=== PATIENT | female | born 1975 | race Caucasian/White ===

== ENCOUNTER 2017-01-27 01:49 | Outpatient (CLI) | payer OTHER | END 2017-01-27 01:50 | disposition home or self-care (01) | LOC: BICULT 01:49 | PROVIDERS: ATTEND Physician Assistant | DX: E01.0 Iodine-deficiency related diffuse (endemic) goiter (principal) | CPT/HCPCS: 76536 ==

== ENCOUNTER 2017-05-30 18:55 | Inpatient (IN) | payer SELFPAY ==
[2017-05-30] MEDS ORDERED: Morphine 4 MG/ML VIAL ONE (20:10)
[2017-05-30] MEDS ORDERED: Acetaminophen 325 MG TAB PO PRN (21:57)
[2017-05-30] MEDS ORDERED: Milk Of Magnesia 30 ML UDCUP PO PRN (21:57)
[2017-05-30] MEDS ORDERED: Ondansetron HCl/PF 4 MG/2 ML Vial IVP PRN ×2 (21:57→23:10)
[2017-05-30] MEDS ORDERED: Lorazepam 2 MG/ML VIAL SLOW IVP PRN (21:58)
[2017-05-30] MEDS ORDERED: Ondansetron ODT 4 MG TAB SL PRN (23:10)
[2017-05-30] MEDS ORDERED: Morphine 4 MG/ML VIAL SLOW IVP PRN (23:11)
[2017-05-30 23:15] VITALS: BMI 20.9
--- NOTE | 2017-05-31 00:12 | HP ---
PRIMARY CARE PHYSICIAN: None. PRESENTING COMPLAINT: Lower back pain. HISTORY OF PRESENT ILLNESS: Ms. Annemarie Avendano is a 42-year-old female with a past medical history of epilepsy, depression and anxiety, who presented to the emergency room from an outside ER with complaints of lower back pain, started about 4 days ago. She describes it as an intermittent, sharp, lower back pain, radiating down both legs and associated with numbness, tingling and weakness of her legs. She states it is worse on the left than the right. She has not had any previous episodes. There is no history of trauma. She denies fever or chills. She was seen at [facility] where she had an abdomen/pelvis CT done. This revealed minimal degenerative changes in the lower thoracic spine, but no evidence of fracture or subluxation involving the lumbar spine. She was then sent to [facility] for an MRI to rule out a spinal cord impingement. PAST MEDICAL HISTORY: As stated as above. PAST SURGICAL HISTORY: None. FAMILY HISTORY: Reviewed and noncontributory. SOCIAL HISTORY: Drinks alcohol on occasion, but denies smoking cigarettes or use of illicit drugs. ALLERGIES: None. HOME MEDICATIONS: None. REVIEW OF SYSTEMS: 12-point review of systems negative except as stated in the HPI. PHYSICAL EXAMINATION: VITAL SIGNS: Blood pressure 127/90, pulse rate 78, respiratory rate 18, oxygen saturation 100 % on room air, temperature 98 degree Fahrenheit. GENERAL: Not in acute distress. She states her pain has resolved following IV morphine. HEENT: Normocephalic, atraumatic. Not pale, anicteric. Moist oral mucosa. PERRLA. EOMI. NEUROLOGIC: Alert and oriented to time, place and person. Positive for paraspinal tenderness in the lumbar region. Reflexes increased in the patella. Sensation normal. RESPIRATORY: Vesicular breath sounds bilaterally. No wheezes or rales. CARDIOVASCULAR: S1, S2 only. Regular rate and rhythm. No murmurs, rubs or gallops. SKIN: Warm, dry, well-perfused. No rashes or lesions. PSYCHIATRIC: Anxious. MUSCULOSKELETAL: No edema. Moves all extremities. Examination limited due to the patient's discomfort and anxiety, not fully cooperating with exam. LABORATORY DATA: CBC with slight leukocytosis of 12.1. Serum chemistry with mild hypokalemia of 3.2. CT Abdomen/Pelvis: See HPI. ASSESSMENT AND PLAN: 1. Acute Lower back pain with paresthesia b/l lower extremities: Concern for neurologic etiology, especially with the description of the pain and increased reflexes on examination. MRI was ordered in the emergency room, but the patient was unable to tolerate the exam. She was given 4 mg of morphine sulfate to alleviate the pain, so she can get the MRI, but was anxious and unable to get MRI done. She was not given Ativan or any sedatives, but decision was then made by ER physician is to admit her to the hospital to obtain Anesthesia consult for possible conscious sedation for MRI. Since the fuel cell battery technician had left for the night, I plan to admit her to the hospital on observation and give her 2 mg of lorazepam before attempting MRI in the morning. If this is unsuccessful, then Anesthesia can be consulted for conscious sedation. In the meantime, we will ensure adequate pain control. 2. History of depression and anxiety. The patient reports a history of depression, but has not taken medications for a few months. She also reports getting anxious and panic attacks. We will place her on IV lorazepam p.r.n. for anxiety. CODE STATUS: FULL CODE. MTDD
[2017-05-31 04:55] LABS: #Eosinphils 0.1 thou/uL (0.0-0.7); #Lymphocytes 2.5 thou/uL (1.20-3.40); #Neutrophils 5.4 thou/uL (1.40-6.50); %Basophils 0.5 % (0.0-1.0); %Eosinophils 1.3 % (0.0-10.0); %Lymphocytes 27.4 % (21.0-51.0); %Monocytes 11.2 % (0.0-10.0); %Neutrophils 59.7 % (42.0-75.0); Hemoglobin 11.9 g/dL (12.0-16.0); Mean Corpuscular Volume 97.2 fl (81.0-99.0); Mean Platelet Volume 7.3 fL (7.4-10.4); Platelet Count 281 thou/uL (130-400); RBC Distribution Width 11.4 % (11.5-14.5); White Blood Cell (WBC) Count 9.1 thou/uL (4.8-10.8)
[2017-05-31 05:06] LABS: Anion Gap 11 mmol/L (10-20); BUN (Urea Nitrogen) 10 mg/dL (7.0-18.7); Calc. Creatinine Clearance 86 mL/min (70-130); Calcium 9.1 mg/dL (7.8-10.44); Carbon Dioxide 25 mmol/L (22-29); Chloride 105 mmol/L (98-107); Estimated GFR-MDRD Greater than 90; Glucose 111 mg/dL (70-105); Potassium 4.3 mmol/L (3.5-5.1); Sodium 137 mmol/L (136-145)
[2017-05-31] MEDS: Famotidine 20 MG TAB PO SCH ×2 (08:46→20:35)
[2017-05-31] MEDS: HYDROcodone/Acetaminophen 5/325 mg Tablet PO PRN ×2 (08:46→18:25)
[2017-05-31] MEDS: Docusate 100 MG CAP PO SCH ×2 (08:47→20:35)
--- NOTE | 2017-05-31 12:26 | PDOC.PN ---
- Subjective Encounter Start Date: 05/31/17 Encounter Start Time: 11:20 -: old records requested/rev Pt seen and examined, chart reviewe din its entirety, this ismy first visit with this patient. Admitted last night for acut eonchornic lumbar back pain with bilateral LE radiculopathy, no bowel or bladder control issues, but pain too much to tolerate ambulating. labs ok. Placed in observation - stat MRI L spine ordered by ER, but accidentally dated for this evening instead of last evening. I reordered. Pain about the same. no N/v, no CP or sOb, no D/C. family at bedside. 10 point ROs performed and neg for all systems except as per HPI - Objective MAR Reviewed: Yes Vital Signs & Weight: Vital Signs (12 hours) Temp Pulse Resp BP Pulse Ox 05/31/17 11:57 97.9 F 68 16 130/85 100 05/31/17 08:00 98.3 F 59 L 14 99 05/31/17 07:51 98.3 F 59 L 14 119/79 99 05/31/17 05:00 98.0 F 60 16 147/88 H 98 Weight Weight 114 lb 11.2 oz I&O: 05/30/17 05/31/17 06/01/17 06:59 06:59 06:59 Intake Total 400 0.5 Balance 400 0.5 Result Diagrams: 05/31/17 04:07 05/31/17 04:07 Radiology Reviewed by me: Yes EKG Reviewed by me: Yes Phys Exam - Physical Examination Constitutional: NAD HEENT: PERRLA, moist MMs, sclera anicteric, oral pharynx no lesions Neck: no nodes, no JVD, supple, full ROM Respiratory: no wheezing, no rales, no rhonchi, clear to auscultation bilateral Cardiovascular: RRR, no significant murmur, no rub Gastrointestinal: soft, non-tender, no distention, positive bowel sounds Musculoskeletal: no edema, pulses present numbness to BLe, 3-5 strength, limited by pain. Lymphatic: no nodes Psychiatric: normal affect, A&O x 3 Skin: no rash, normal turgor, cap refill <2 seconds Dx/Plan (1) Acute lumbar radiculopathy Code(s): M54.16 - RADICULOPATHY, LUMBAR REGION Status: Acute Comment: State MRI, follow up on results (2) Seizure disorder Code(s): G40.909 - EPILEPSY, UNSP, NOT INTRACTABLE, WITHOUT STATUS EPILEPTICUS Status: Chronic (3) Anxiety Code(s): F41.9 - ANXIETY DISORDER, UNSPECIFIED Status: Chronic (4) Depression Code(s): F32.9 - MAJOR DEPRESSIVE DISORDER, SINGLE EPISODE, UNSPECIFIED Status : Chronic Qualifiers: Depression Type: major depressive disorder Major depression episode severity: unspecified - Plan cont current plan of care, plan discussed w/ family, PT/OT * . continue home meds, follow up MRI - of abnormal, will ask neurosurgery to evaluate.
--- NOTE | 2017-05-31 15:43 | MRI ---
MRI LUMBAR SPINE WITH AND WITHOUT CONTRAST: DATE: 05/31/17 HISTORY: 42-year-old female with lumbar radiculopathy: Severe low back pain that radiates to bilateral lower extremities COMPARISON: None. TECHNIQUE: Multiple sequences obtained in axial and sagittal planes, pre and post IV injection of gadolinium-bas ed contrast agent: 12 mL MultiHance. This was originally ordered as a noncontrast MRI, but then an extradural mass was found in the upper sacral spinal canal, and was converted to a MRI with and without contrast. Furthermore, multiple neyda tional sequences of the pelvic cavity were performed to evaluate the right intrapelvic mass. FINDINGS: There are five lumbar-type vertebrae. Vertebral body heights are maintained. Alignment is normal. All levels from T12-L1 through L4-5 are essentially normal, with normal disc spaces, no high grade centr al stenosis, no high grade neural foraminal stenosis, and no nerve root impingement. Conus medullaris terminates at L1-2. Cauda equina is arranged in a symmetrical, normal distribution throughout the th ecal sac. At L5-S1, there is mild disc space narrowing, but no disc desiccation. At that level, there is a mild disc bulge, plus a central midline small disc herniation. Attached to the inferior edge of this cent ral small disc herniation, there is a mass in the anterior epidural space of the S1 level, measuring approximately 16 x 9 x 20 mm, with hypointense T1 WI signal similar to that of disc, and intermediate signal intensity on T2 WI, slightly more hyperintense than that of parent disc. There is a thin circ umferential rim of enhancement around the mass representing granulation tissue, which extends superio rly to the L4-5 level and inferiorly down to the mid sacral level. This mass occupies the upper 75% t he craniocaudal length of the S1 spinal canal level, and represents an inferiorly migrated, moderate ly large extruded disc fragment. It is still attached to its parent disc, and is therefore not quite sequestered. It displaces the bilateral S1 nerve roots laterally, and severely narrows the upper sacr al thecal sac, additionally compressing the more distal sacral nerve roots. There is no abnormal bone marrow enhancement or bone marrow signal abnormality. In the right far posterior aspect of the pelvic cavity, there is an approximately 4.5 x 4.5 x 3 cm th in-walled cyst, with thin rim enhancement, but no central enhancing solid components. It is surrounde d by a tiny amount of free fluid. It was demonstrated and described on the CT of 05/30/17. IMPRESSION: 1. In the S1 anterior sacral epidural space, there is a moderately large, inferiorly migrated, extru ded disc fragment, which impinges on multiple bilateral sacral nerve roots. 2. The rest of the lumbar spine superior to L5 is normal. 3. Moderately large cyst in the far posterior right pelvic cavity. ERICH Robertson POS: [facility]
[2017-06-01 04:49] LABS: #Eosinphils 0.2 thou/uL (0.0-0.7); #Lymphocytes 2.6 thou/uL (1.20-3.40); #Monocytes 0.8 thou/uL (0.11-0.59); #Neutrophils 4.1 thou/uL (1.40-6.50); %Basophils 0.5 % (0.0-1.0); %Eosinophils 2.2 % (0.0-10.0); %Lymphocytes 33.7 % (21.0-51.0); %Monocytes 10.3 % (0.0-10.0); %Neutrophils 53.3 % (42.0-75.0); Hemoglobin 12.1 g/dL (12.0-16.0); Mean Corpuscular HGB CONC 32.8 g/dL (32.0-36.0); Mean Corpuscular Hemoglobin 32.3 pg (27.0-31.0); Mean Corpuscular Volume 98.4 fl (81.0-99.0); Mean Platelet Volume 7.1 fL (7.4-10.4); Platelet Count 272 thou/uL (130-400); RBC Distribution Width 11.3 % (11.5-14.5); Red Blood Cell (RBC) Count 3.76 mill/uL (4.20-5.40); White Blood Cell (WBC) Count 7.7 thou/uL (4.8-10.8)
[2017-06-01 05:02] LABS: Anion Gap 8 mmol/L (10-20); BUN (Urea Nitrogen) 11 mg/dL (7.0-18.7); Calc. Creatinine Clearance 75 mL/min (70-130); Calcium 9.2 mg/dL (7.8-10.44); Carbon Dioxide 28 mmol/L (22-29); Chloride 104 mmol/L (98-107); Estimated GFR-MDRD 78; Glucose 102 mg/dL (70-105); Potassium 4.2 mmol/L (3.5-5.1); Sodium 136 mmol/L (136-145)
--- NOTE | 2017-06-01 08:28 | CON ---
DATE OF CONSULTATION: 06/01/2017 HISTORY OF PRESENT ILLNESS: Ms. Avendano is a very pleasant 42-year-old woman who around 4 days ago star ayden developing back pain that progressively worsened over the course of the next 72 hours including t he bilateral S1 radiculopathies all the way into the feet. She also had notable numbness over the sa me distribution and likely most concerning of all was this inability or sensation that she was not co mpletely voiding. For this purpose she went to the [facility] for [facility] where they evaluated her. I actually spoke with the ER physician at that location who stated th at she had a postvoid residual volume of 150 mL so her suspicions were correct and she was retaining urine. I asked that she be transferred for the purpose of obtaining a lumbar MRI which was done. Gudelia mayes was ultimately admitted to the Hospital Service. MRI was performed which revealed a significant ce ntral concentric disk herniation with inferior migration at L5-S1, impacting the S1 and S2 nerve root s. This is more than likely the definitive source of all of her symptoms as we discussed at bedside, she states that she feels giveaway weakness in the left lower extremity which is also where she feel s the majority of her pain, her right lower extremity. She is lying in the bed for yesterday she sta rted to improve slightly, but still has pain. She has numbness in her bilateral feet, particularly i n the soles of her feet and again corroborates the fact that she continues to feel like she is incomp letely voiding. She denies saddle anesthesia. Denies any bowel incontinence and still knows when gudelia mayes had the urge to urinate. On examination, she has significant pain limiting weakness, particularly in the left lower extremity. I would grade her strength at about 4-5, however, again very limited on examination, given the acute pain spikes any time she moves either of her lower extremities. She r equests that she be able to walk; however, I feel like this maneuver would definitively be intolerabl e based on the amount of pain that she is in just from minor movements at bedside. Reflexes are norm al at the patella. Sensory disturbance is posterior in the calves and soles of her feet. She has a paraesthesia to the lateral left hip that is not present on the right. Straight leg raise is adamant ly positive on the left lower extremity and then to a lesser extent, but still positive on the right lower extremity. I had a discussion with her regarding nonoperative versus operative management and feel that since she does have some bladder dysfunction that is new in concordance with her back pain that I would likely side on a surgical route, but would need to discuss with Dr. Zamora and we will pl an for more discussion later this morning. I will go ahead and initiate n.p.o. diet in the instance that we do proceed with surgery today. As stated I have the discussion regarding planning if we do not decide to do so, will return her back to her regular dietary needs. Thank you for the consultation.
[2017-06-01] MEDS: Docusate 100 MG CAP PO SCH ×2 (10:06→20:30)
[2017-06-01] MEDS: Famotidine 20 MG TAB PO SCH ×2 (10:06→20:30)
--- NOTE | 2017-06-01 12:16 | PDOC.PN ---
- Subjective Encounter Start Date: 06/01/17 Encounter Start Time: 10:15 Pt seen and examined. Up brushing teeth, pain ful to walk. Case discussed nu Rubio PA-C with Dr Sera jhaveri neurosurgey, agreeeable to surgicla intervention if pt agrees. Pt took hibiclens shower, agreeable to surgery, NPO in anticipation of surgery this afternoon 10 point ROS performed and neg for all systems except as per HPI - Objective MAR Reviewed: Yes Vital Signs & Weight: Vital Signs (12 hours) Temp Pulse Resp BP Pulse Ox 06/01/17 08:00 97.6 F 61 16 99 06/01/17 04:00 97.6 F 61 16 104/75 98 Weight Admit Weight 114 lb 11.2 oz Weight 114 lb 11.2 oz I&O: 05/31/17 06/01/17 06/02/17 06:59 06:59 06:59 Intake Total 400 240.5 Balance 400 240.5 Result Diagrams: 06/01/17 03:57 06/01/17 03:57 Radiology Reviewed by me: Yes EKG Reviewed by me: Yes Phys Exam - Physical Examination Constitutional: NAD HEENT: PERRLA, moist MMs, sclera anicteric, oral pharynx no lesions Neck: no nodes, no JVD, supple, full ROM Respiratory: no wheezing, no rales, no rhonchi, clear to auscultation bilateral Cardiovascular: RRR, no significant murmur, no rub Gastrointestinal: soft, non-tender, no distention, positive bowel sounds Musculoskeletal: no edema, pulses present weskness and numbness to BLE, motion limited by pain Lymphatic: no nodes Psychiatric: normal affect, A&O x 3 Skin: no rash, normal turgor, cap refill <2 seconds Dx/Plan (1) Acute lumbar radiculopathy Code(s): M54.16 - RADICULOPATHY, LUMBAR REGION Status: Acute Comment: Stat MRI with disk migration casuing nerve impingement. to OR this afternoon for extraction (2) Seizure disorder Code(s): G40.909 - EPILEPSY, UNSP, NOT INTRACTABLE, WITHOUT STATUS EPILEPTICUS Status: Chronic (3) Anxiety Code(s): F41.9 - ANXIETY DISORDER, UNSPECIFIED Status: Chronic (4) Depression Code(s): F32.9 - MAJOR DEPRESSIVE DISORDER, SINGLE EPISODE, UNSPECIFIED Status : Chronic Qualifiers: Depression Type: major depressive disorder Major depression episode severity: unspecified - Plan cont current plan of care, PT/OT, out of bed/ambulate * .
[2017-06-01] MEDS ORDERED: Thrombin 5000 UNITS/5 ML VIAL ONE (12:35)
[2017-06-01] MEDS ORDERED: Bupivacaine HCl 0.5%/Epinephrine 1:200,000/PF 30 ml Vial ONE (12:35)
[2017-06-01] MEDS ORDERED: diphenhydrAMINE 50 MG/ML VIAL ONE (13:19)
[2017-06-01] MEDS ORDERED: ePHEDrine/0.9% NaCl/PF SYRINGE 50 mg/10 ml ONE (13:19)
[2017-06-01] MEDS ORDERED: Ketorolac Tromethamine 30 MG/ML VIAL ONE (13:19)
[2017-06-01] MEDS ORDERED: Dexamethasone 20 MG/5 ML VIAL ONE (13:19)
[2017-06-01] MEDS ORDERED: PROPOFOL 200 MG/20 ML VIAL ONE (13:19)
[2017-06-01] MEDS ORDERED: Lidocaine 1% PF 5 ML VIAL ONE (13:19)
[2017-06-01] MEDS ORDERED: PHENYLEPHRINE-NS 100 MCG/ML 10 ML SYRINGE ONE (13:19)
[2017-06-01] MEDS ORDERED: Glycopyrrolate 0.2 MG/ML 5 ML SYRINGE ONE (13:19)
[2017-06-01] MEDS ORDERED: Fentanyl 100 MCG/2 ML VIAL ONE (13:42)
[2017-06-01] MEDS ORDERED: Midazolam HCl 2 mg/2 ml Vial ONE ×2 (13:48→13:50)
--- NOTE | 2017-06-01 14:07 | PRG ---
DATE OF SERVICE: 06/01/2017 SUBJECTIVE: Ms. Avendano was admitted 2 days ago with severe low back and lower extremity discomfort. S he has been contending with this now for several days. She reached the point where pain was so signi ficant, she was unable to weightbear and walk and prompted a visit to the ER. She has had an MRI sca n performed in the lumbar spine since that time which revealed the presence of an L5 disk herniation with inferior migration impinging upon the S1 potentially components of the S2 nerve roots. She has numbness in her lower extremities in addition to pain. She does not have any weakness when strength testing at bedside while supine. We discussed with her the treatment options including risks, benefits, and alternatives to an L5 disk ectomy. She would like to go ahead and move forward with surgery. I answered all of her questions a s well as the questions of her mother. They were informed and provided consent for the procedure.
[2017-06-01] MEDS ORDERED: Meperidine HCl/PF 25 MG/ML VIAL ONE (15:56)
[2017-06-01] MEDS ORDERED: Meperidine HCl/PF 25 MG/ML VIAL SLOW IVP PRN (15:57)
[2017-06-01] MEDS ORDERED: Ondansetron HCl/PF 4 MG/2 ML Vial IVP PRN (15:57)
[2017-06-01] MEDS ORDERED: Promethazine HCl 25 MG/ML VIAL IM PRN (15:57)
[2017-06-01] MEDS ORDERED: Promethazine HCl 25 MG/ML VIAL SLOW IVP PRN (15:57)
[2017-06-01] MEDS ORDERED: Mag-Al 1200 mg/1200 mg/30 ML UDCUP PO PRN (16:37)
[2017-06-01] MEDS ORDERED: Acetaminophen 325 MG TAB PO PRN (16:37)
[2017-06-01] MEDS ORDERED: Bisacodyl 10 MG SUPP PR PRN (16:37)
[2017-06-01] MEDS ORDERED: Morphine 4 MG/ML Carpuject SLOW IVP PRN (16:37)
[2017-06-01] MEDS ORDERED: diphenhydrAMINE 50 MG/ML VIAL IVP PRN (16:37)
[2017-06-01] MEDS ORDERED: Acetaminophen/Codeine 30-300mg Tablet PO PRN (16:37)
[2017-06-01] MEDS ORDERED: Acetaminophen 650 MG Suppository PR PRN (16:37)
[2017-06-01] MEDS ORDERED: diphenhydrAMINE 25 MG CAP PO PRN (16:37)
[2017-06-01] MEDS ORDERED: Ondansetron HCl/PF 4 MG/2 ML Vial SLOW IVP PRN (16:39)
[2017-06-01] MEDS ORDERED: Morphine 4 MG/ML VIAL SLOW IVP PRN ×2 (16:45)
[2017-06-01] MEDS: Sodium Chloride 0.9% 1,000 ML IV SCH (17:03)
--- NOTE | 2017-06-01 18:37 | OP ---
DATE OF PROCEDURE: 06/01/2017 SURGEON: Francisco Zamora M.D. SEAT MENDER: Miguel Rubio PA-C. INDICATION: Pain. DIAGNOSIS: Lumbar radiculopathy. PROCEDURE: L5 laminectomy, L5 discectomy. ANESTHESIA: General. TECHNIQUE: The patient was brought into the operating room and placed under general anesthesia. She was flipped from a supine or prone position on the operating room table. A linear incision was plan michelle over the L5-S1 segment. After prepping and draping and after an appropriate operative pause, the incision was created. The soft tissues were swept away from midline. An Adson rongeur as well as 2 , 3 and 4 mm Kerrisons were used to remove the inferior lamina of L5 and superior aspect of S1. The descending S1 nerve roots were identified, mobilized medially. Large extruded disk material that had migrated inferiorly was identified and carefully removed until the central canal and lateral recesse s including the descending S1 nerve roots were decompressed. The wound was irrigated. Hemostasis wa s maintained throughout. The wound was then closed in anatomic layers and a pressure dressing was ap plied. There were no known procedural complications.
[2017-06-01] MEDS: CEFAZOLIN 1 GM, Syringe 2.5 ML in Sterile Water 7.5 ML SLOW IVP SCH (22:18)
[2017-06-02 05:14] LABS: #Lymphocytes 1.3 thou/uL (1.20-3.40); #Monocytes 0.9 thou/uL (0.11-0.59); #Neutrophils 10.7 thou/uL (1.40-6.50); %Basophils 0.2 % (0.0-1.0); %Eosinophils 0.1 % (0.0-10.0); %Lymphocytes 9.9 % (21.0-51.0); %Monocytes 6.8 % (0.0-10.0); %Neutrophils 83.1 % (42.0-75.0); Hemoglobin 10.9 g/dL (12.0-16.0); Mean Corpuscular HGB CONC 33.4 g/dL (32.0-36.0); Mean Corpuscular Hemoglobin 32.7 pg (27.0-31.0); Mean Corpuscular Volume 97.9 fl (81.0-99.0); Mean Platelet Volume 7.3 fL (7.4-10.4); Platelet Count 280 thou/uL (130-400); RBC Distribution Width 11.2 % (11.5-14.5); Red Blood Cell (RBC) Count 3.33 mill/uL (4.20-5.40); White Blood Cell (WBC) Count 12.9 thou/uL (4.8-10.8)
[2017-06-02] MEDS: CEFAZOLIN 1 GM, Syringe 2.5 ML in Sterile Water 7.5 ML SLOW IVP SCH (05:26)
[2017-06-02] MEDS: Sodium Chloride 0.9% 1,000 ML IV SCH ×2 (05:26→20:32)
[2017-06-02 05:35] LABS: Anion Gap 7 mmol/L (10-20); BUN (Urea Nitrogen) 10 mg/dL (7.0-18.7); Calc. Creatinine Clearance 91 mL/min (70-130); Calcium 8.7 mg/dL (7.8-10.44); Carbon Dioxide 25 mmol/L (22-29); Chloride 107 mmol/L (98-107); Estimated GFR-MDRD Greater than 90; Glucose 105 mg/dL (70-105); Potassium 4.1 mmol/L (3.5-5.1); Sodium 135 mmol/L (136-145)
[2017-06-02] MEDS: Cyclobenzaprine 10 MG TAB PO PRN (07:50)
[2017-06-02] MEDS: Acetaminophen/Codeine 30-300mg Tablet PO PRN ×2 (07:51→18:13)
[2017-06-02] MEDS: Famotidine 20 MG TAB PO SCH ×2 (07:55→20:34)
[2017-06-02] MEDS: Docusate 100 MG CAP PO SCH ×2 (07:55→20:34)
[2017-06-02] MEDS ORDERED: Dexamethasone 4 mg/ml Vial SLOW IVP SCH (10:30)
--- NOTE | 2017-06-02 10:50 | PRG ---
DATE OF SERVICE: 06/02/2017 Ms. Avendano is 1 day status post L5 diskectomy for a large inferiorly extruded L5 disk. Surgery was une ventful. She has had her uneventful course since surgery. I did visit with her today and she is mob ilizing in the halls with the aid of physical therapy and she reports the anticipated post-surgical a ches and pains. She is where I would expect her to be from a neurosurgical perspective. We will arr nicolas outpatient follow up in 2 weeks. Please call if there are questions.
[2017-06-02] MEDS ORDERED: Dexamethasone 6 MG, Admixture Fee 1 EACH in Sodium Chloride 0.9% 50 ML IVPB ONE (12:00)
--- NOTE | 2017-06-02 16:41 | DIS ---
DATE OF ADMISSION: 05/30/2017 DATE OF DISCHARGE: 06/02/2017 DISCHARGE DIAGNOSES: 1. Sacral nerve impingement secondary to extruded lumbar disk fragment. 2. Intractable pain. 3. Bilateral lower extremity numbness, tingling, and weakness. 4. Seizure disorder. 5. Depression. 6. Anxiety. CONSULTATIONS: Neurosurgery, Dr. Rehan Rubio and Dr. Francisco Zamora on 06/01/2017. PROCEDURES: On 06/01/[address] Francisco Zamora, the patient underwent L5 micro laminectomy and L5 disk ectomy of extruded fragment. HISTORY AND PHYSICAL: Ms. Avendano is a 42-year-old female with history of seizures, anxiety, and depres gus who presented to the emergency department for lower back pain and bilateral extremity weakness a nd numbness. She initially presented to an outside ER with complaints about 4 days prior to admissio n, intermittent, sharp and radicular in nature, worse on the left than the right and not having befor e. She was seen and evaluated at [facility] with abdomen and pelvis CT done that showed minimal DJD in the lower thoracic spine. She was subsequently transferred here for further workup and evaluatio n. Here, the patient was attempted to get an MRI, but she was unable to lay flat. She was given some mo rphine to alleviate, but due to anxiety, was unable to get the MRI done. We subsequently called for admit. HOSPITAL COURSE: The patient was seen and examined by Dr. Lopez, was initially placed in observat ion and a stat MRI was ordered but unfortunately was ordered for the evening of 05/31. I took the case over that morning, the patient's pain was uncontrolled. She was given some IV medica tions for anxiety and for pain and ultimately was able to have her MRI spine, time retained for 11:00 a.m. MRI on 05/31/2017 revealed a disk fragment that had travelled inferiorly and was impinging the sacral nerves in the caudal equina. At that time, Neurosurgery was consulted who agreed that she would bianka efit from decompression. She was seen initially by Neurosurgery on the morning of 06/01, she was kept n.p.o. and taken to the operating room on 06/01 in the afternoon, and underwent L5 laminectomy and diskectomy. Today, she was able to get up and walk around with some expected postop pain, but otherwise stable fo r discharge with outpatient followup. PHYSICAL EXAMINATION: The patient was seen and examined on the day of discharge. Discharge plan an d disposition was discussed with the patient face to face at the bedside. DISCHARGE MEDICATIONS: 1. Tylenol #4 one to two p.o. q.4-6 hours p.r.n. pain, prescription for 90 tablets with no refills p rovided by Dr. Zamora. 2. Flexeril 10 mg p.o. q.8 hours p.r.n. muscle spasm, prescription for 60 tablets with 1 refill prov [address] Zamora. FOLLOWUP APPOINTMENTS: 1. Primary care physician within a week. 2. Dr. Zamora with Neurosurgery in 2 weeks. DISCHARGE CONDITION: Stable. DISPOSITION: Being discharged home via private vehicle. DISCHARGE ACTIVITY: Per neurologic limits. DISCHARGE DIET: Unrestricted.
[2017-06-02] MEDS ORDERED: Bisacodyl 10 MG SUPP PR SCH (20:15)
[2017-06-02] MEDS ORDERED: Senokot 8.6 MG TAB PO SCH (20:15)
--- NOTE | 2017-06-02 22:43 | RAD ---
FRONTAL VIEW ABDOMEN: 06/02/17 INDICATION: Abdominal pain. FINDINGS: Upper abdomen is excluded. There is moderate retained fecal material in the colon. Bowel gas pattern is nonspecific. Evaluate for free air is limited by exclusion of the upper abdomen as well as supine positioning. IMPRESSION: Moderate retained fecal material of the colon. POS: [facility]
[2017-06-03] MEDS: HYDROcodone/Acetaminophen 5/325 mg Tablet PO PRN (03:13)
[2017-06-03 06:43] VITALS: TEMP 98
[2017-06-03] MEDS: Sodium Chloride 0.9% 1,000 ML IV SCH (08:09)
[2017-06-03 08:19] VITALS: BP 146/91
[2017-06-03] MEDS: Docusate 100 MG CAP PO SCH (08:28)
[2017-06-03] MEDS: Famotidine 20 MG TAB PO SCH (08:28)
[2017-06-03] MEDS: Cyclobenzaprine 10 MG TAB PO PRN (08:32)
[2017-06-03] MEDS: Acetaminophen/Codeine 30-300mg Tablet PO PRN (08:32)
[2017-06-03] MEDS ORDERED: Cyclobenzaprine 10 MG TAB PO PRN (09:38)
[2017-06-03] MEDS ORDERED: Polyethylene Glycol 3350 17 GM Packet PO SCH (09:45)
--- NOTE | 2017-06-04 07:04 | EKG ---
Test Reason : Blood Pressure : / mmHG Vent. Rate : 059 BPM Atrial Rate : 059 BPM P-R Int : 112 ms QRS Dur : 084 ms QT Int : 410 ms P-R-T Axes : 038 051 094 degrees QTc Int : 405 ms Sinus bradycardia Nonspecific T wave abnormality Abnormal ECG Confirmed by ENRIQUE MENDOZA ([id number]) on 06/04/2017 7:04:00 AM Referred By: OLEGARIO Confirmed By:ENRIQUE MENDOZA
--- NOTE | 2017-06-07 10:03 | ADD-DIS ---
ADDENDUM For full discharge summary, please see dictation from 06/02/2017, the patient was discharged home, mauri bernard, while waiting for her ride did show up between 9:00 a.m. and 9:00 p.m., the patient developed some left adnexal pain. She was found to have some ovarian cysts on initial imaging and she is curre ntly at day 10 of her menstrual cycle since the beginning of her last menses. She also has been havi ng some constipation and had not having good bowel movement, so she was started on MiraLax and her di scharge was canceled. Overnight, she did well, she had multiple bowel movements and on my evaluation in next morning, she w as baseline walking 250 feet. I have ordered a walker for her to have her stability. I discussed wi th her adnexal pain, likely her ovarian cyst and the follicular phase of her current menstrual cycle and her need for followup with outpatient GENERAL MACHINIST. She was otherwise stable. She was started on her Flexeril and her Tylenol for that. She was supposed to be started on as an outpatient after discharg e. She was otherwise stable for discharge again, and orders were rewritten. PHYSICAL EXAMINATION: The patient was seen and examined. Discharge plan and disposition were discus sed with the patient [id number] again at the bedside. DISCHARGE ACTIVITY: As tolerated per orthopedic limitations. DISCHARGE DIET: No restrictions. DISCHARGE MEDICATIONS: 1. Tylenol No. 4 one to two tablets every 6 hours as needed. 2. Flexeril 10 mg p.o. every 8 hours as needed for muscle spasm. Written prescriptions were provide d by Dr. Grant with Neurosurgery. FOLLOWUP APPOINTMENTS: 1. Still with Areli Schroeder PA-C, within a week. 2. Dr. Francisco Zamora with Neurosurgery in 2 weeks.
== END 2017-06-03 10:15 | disposition home or self-care (01) | DRG 520 ==
LOC: ERS 18:55 → T4-B 22:46 → OBSVTOIN 22:46
PROVIDERS: ADMIT Internal Medicine; ATTEND Internal Medicine
PROC: 0SB20ZZ Excision of Lumbar Vertebral Disc, Open Approach (ICD-10-PCS; principal; 2017-06-01)
DX: M51.16 Intervertebral disc disorders with radiculopathy, lumbar region (principal); N31.8 Other neuromuscular dysfunction of bladder; E87.6 Hypokalemia; R20.2 Paresthesia of skin; F41.8 Other specified anxiety disorders; R33.9 Retention of urine, unspecified; G40.909 Epilepsy, unspecified, not intractable, without status epilepticus; K59.00 Constipation, unspecified; R10.2 Pelvic and perineal pain; N83.209 Unspecified ovarian cyst, unspecified side
CPT/HCPCS: 36415; 72158; 74018; 76001; 80048; 83735; 85025; 93005; 93010; 96374; A4216; G8978-GP-CL; G8979-GP-CJ; J0131; J0670; J0690; J1100; J1200; J1885; J2001; J2060; J2175; J2250; J2270; J2704; J3010; J7050

== ENCOUNTER 2021-09-26 09:50 | Emergency (ER) | payer SELFPAY ==
[2021-09-26 10:19] LABS: #Basophils 0.1 thou/uL (0.0-0.2); #Eosinphils 0.1 thou/uL (0.0-0.7); #Lymphocytes 1.6 thou/uL (1.20-3.40); #Monocytes 1.1 thou/uL (0.11-0.59); #Neutrophils 9.9 thou/uL (1.40-6.50); %Basophils 0.4 % (0.0-1.0); %Eosinophils 0.8 % (0.0-10.0); %Lymphocytes 12.8 % (21.0-51.0); %Monocytes 8.3 % (0.0-10.0); %Neutrophils 77.7 % (42.0-75.0); Hemoglobin 13.1 g/dL (12.0-16.0); Mean Corpuscular HGB CONC 32.5 g/dL (32.0-36.0); Mean Corpuscular Hemoglobin 31.8 pg (27.0-31.0); Mean Corpuscular Volume 97.9 fL (78.0-98.0); Mean Platelet Volume 7.5 fL (7.4-10.4); Platelet Count 283 thou/uL (130-400); RBC Distribution Width 11.6 % (11.5-14.5); Red Blood Cell (RBC) Count 4.13 mill/uL (4.20-5.40); White Blood Cell (WBC) Count 12.8 thou/uL (4.8-10.8)
[2021-09-26] MEDS ORDERED: Ondansetron PF 4 MG/2 ML Vial ONE (10:39)
[2021-09-26] MEDS ORDERED: Sucralfate 1 GM/10 ML UDCUP ONE (10:39)
[2021-09-26] MEDS ORDERED: Famotidine/PF 20 mg/2ml Vial ONE (10:39)
[2021-09-26 10:53] LABS: ALT (SGPT) 35 U/L (8-55); AST (SGOT) 34 U/L (5-34); Albumin 4.4 g/dL (3.5-5.0); Alkaline Phosphatase 70 U/L (40-110); Anion Gap 13 mmol/L (10-20); BUN (Urea Nitrogen) 9 mg/dL (7.0-18.7); Bilirubin, Total 0.7 mg/dL (0.2-1.2); Calc. Creatinine Clearance 0 mL/min (70-130); Calcium 9.5 mg/dL (7.8-10.44); Carbon Dioxide 27 mmol/L (22-29); Chloride 103 mmol/L (98-107); Estimated GFR 87; Globulin 4.2 g/dL (2.4-3.5); Glucose 107 mg/dL (70-105); Lipase 7 U/L (8-78); Potassium 4.7 mmol/L (3.5-5.1); Protein, Total 8.6 g/dL (6.0-8.3); Sodium 138 mmol/L (136-145)
[2021-09-26] MEDS ORDERED: Lidocaine Viscous Sol 2% 15 ml UD Cup ONE (11:19)
[2021-09-26] MEDS ORDERED: Mag-Al 1200 mg/1200 mg/30 ML UDCUP ONE (11:19)
== END 2021-09-26 11:15 | disposition home or self-care (01) ==
LOC: ERS 09:50
DX: K21.00 Gastro-esophageal reflux disease with esophagitis, without bleeding (principal); E03.9 Hypothyroidism, unspecified; J45.909 Unspecified asthma, uncomplicated
CPT/HCPCS: 71045; 80053; 83690; 84484; 85025; 93005; 94760; 96374; 96375; J2405; S0028